=== PATIENT | male | born 1975 | race Caucasian/White ===

== ENCOUNTER 2019-03-16 12:08 | Emergency (ER) | payer OTHER ==
[~2019-03-16] VITALS: Ht 182.9 cm; Wt 87.9 kg
--- NOTE | 2019-03-16 12:50 | NUR ---
FEVER, CHILLS, BODY ACHES AND COUGH SINCE THURSDAY. PT STATES HIS KIDS WERE DX WITH INFLUENZA B Took Motrin at 10 am-thus afebrile. Tolerating po fluids droplet precautions placed
[2019-03-16] MEDS ORDERED: KETOROLAC 30 MG/1 ML IM ONE (13:00)
--- NOTE | 2019-03-16 13:07 | NUR ---
FEVER TO 101- TOOK HOME MOTRIN (800MG) AFTER CLARIFICATION WITH PROVIDER
[2019-03-16 13:55] VITALS: BP 138/55
== END 2019-03-16 13:57 | disposition home or self-care (01) ==
LOC: ED 13:44
DX: J02.9 Acute pharyngitis, unspecified (principal); M79.10 Myalgia, unspecified site
CPT/HCPCS: 71045; 99283